=== PATIENT | male | born 1945 | race African-American/Black ===

== ENCOUNTER 2019-11-21 11:35 | Emergency (ER) | payer MEDICARE, OTHER ==
[~2019-11-21] VITALS: Ht 175.3 cm; Wt 97.5 kg
[~2019-11-21 11:35] MED LIST: AMLO10TA4; COLC0.6T2; LISI40TA4; LOP25; SIMV20TA2
[2019-11-21] MEDS ORDERED: ASPI-1497 PO (12:07)
[2019-11-21] MEDS ORDERED: TAMS-11 PO (12:07)
[2019-11-21] MEDS ORDERED: allopurinol (12:07)
[2019-11-21 13:07] LABS: BASOPHILS % 0.8 % (0.0-2.0); EOSINOPHILS % 1.6 % (0.0-5.0); HEMATOCRIT. 47.4 % (42.0-52.0); HEMOGLOBIN. 15.8 g/dL (14.0-18.0); LYMPHOCYTES % 26.3 % (20.0-50.0); MEAN CORPUSCULAR HEMOGLOBIN 31.9 pg (28.0-32.0); MEAN CORPUSCULAR VOLUME 95.4 fL (80.0-94.0); MEAN PLATELET VOLUME 8.7 fl (7.4-10.4); MONOCYTES % 8.3 % (2.0-8.0); PLATELET 184 x1000/uL (130-400); RED BLOOD CELL COUNT 4.97 mill/uL (4.7-6.1)
[2019-11-21 13:14] LABS: CHLORIDE 109 mEq/L (98-107)
[2019-11-21 13:15] LABS: PROTHROMBIN TIME 10.6 sec (9.6-11.0)
[2019-11-21] MEDS ORDERED: SODIUM CHLORIDE 0.9% 500 ML IV ONE (13:36)
[2019-11-21 17:31] LABS: CLARITY URINE CLEAR (CLEAR); COLOR URINE YELLOW (YELLOW); KETONES URINE NEGATIVE (NEGATIVE); LEUKOCYTE ESTERASE URINE NEGATIVE (NEGATIVE); NITRITE URINE NEGATIVE (NEGATIVE); OCCULT BLOOD URINE NEGATIVE (NEGATIVE); PH URINE 5.5 (4.5-8.0); PROTEIN URINE NEGATIVE (NEGATIVE); SPECIFIC GRAVITY URINE 1.019 (1.005-1.030)
[2019-11-21 21:03] VITALS: BP 149/77
== END 2019-11-21 21:03 | disposition short-term general hospital (02) ==
LOC: ER 11:35 → CANBEDREQ 21:14
DX: R42 Dizziness and giddiness (principal); E87.5 Hyperkalemia; I10 Essential (primary) hypertension; I25.10 Atherosclerotic heart disease of native coronary artery without angina pectoris; I25.2 Old myocardial infarction; E78.00 Pure hypercholesterolemia, unspecified; N40.0 Benign prostatic hyperplasia without lower urinary tract symptoms; Z79.82 Long term (current) use of aspirin; Z87.891 Personal history of nicotine dependence
CPT/HCPCS: 36415; 70450; 71045; 80053; 81003; 84484; 85025; 85610; 93005; 96360; 99285; J7030

== ENCOUNTER 2021-05-28 14:53 | Inpatient (IN) | payer MEDICARE, OTHER ==
[~2021-05-28] VITALS: Ht 177.8 cm; Wt 97.5 kg
[~2021-05-28 14:53] MED LIST changes: +ASPI-1497 PO; -COLC0.6T2; +LISI40TA13; -LISI40TA4; +TAMS-11 PO; +allopurinol
[2021-05-28 16:45] LABS: CHLORIDE 108 mEq/L (98-107)
[2021-05-28 16:49] LABS: BASOPHILS % 0.6 % (0.0-2.0); EOSINOPHILS % 0.8 % (0.0-5.0); HEMATOCRIT. 47.4 % (42.0-52.0); LYMPHOCYTES % 23.4 % (20.0-50.0); MEAN CORPUSCULAR HEMOGLOBIN 32.4 pg (28.0-32.0); MEAN CORPUSCULAR VOLUME 96.2 fL (80.0-94.0); MEAN PLATELET VOLUME 8.8 fl (7.4-10.4); MONOCYTES % 6.9 % (2.0-8.0); NEUTROPHILS % 68.3 % (40.0-76.0); PLATELET 175 x1000/uL (130-400); RED BLOOD CELL COUNT 4.93 mill/uL (4.7-6.1); RED CELL DISTRIBUTION WIDTH 14.8 % (11.6-14.6)
[2021-05-29] VITALS (7 sets, daily range): BP systolic 119–168; BP diastolic 61–82
[2021-05-29] MEDS ORDERED: DOCUSATE SODIUM 100MG CAPSULE PO PRN (07:15)
[2021-05-29] MEDS ORDERED: ONDANSETRON HCL 4MG/2ML INJ IV PRN (07:15)
[2021-05-29] MEDS ORDERED: ACETAMINOPHEN 325MG TABLET PO PRN (07:15)
[2021-05-29] MEDS: METOPROLOL TARTRATE 25MG TABLET PO SCH ×3 (09:00→21:24)
[2021-05-29] MEDS: ALLOPURINOL 100 MG TABLET PO SCH ×2 (10:45→16:37)
[2021-05-29] MEDS: ENOXAPARIN 40MG/0.4ML SYR SUBCUT SCH (10:45)
[2021-05-29] MEDS: ASPIRIN 81MG EC TABLET PO SCH (10:45)
[2021-05-29] MEDS: AMLODIPINE 10MG TABLET PO SCH (10:47)
[2021-05-29] MEDS: TAMSULOSIN HCL 0.4MG SR CAPSULE PO SCH (10:52)
[2021-05-29 12:07] LABS: BASOPHILS % 0.7 % (0.0-2.0); EOSINOPHILS % 0.8 % (0.0-5.0); HEMATOCRIT. 43.6 % (42.0-52.0); HEMOGLOBIN. 14.7 g/dL (14.0-18.0); LYMPHOCYTES % 18.9 % (20.0-50.0); MEAN CORPUSCULAR VOLUME 94.6 fL (80.0-94.0); MONOCYTES % 8.2 % (2.0-8.0); NEUTROPHILS % 71.4 % (40.0-76.0); PLATELET 183 x1000/uL (130-400); RED BLOOD CELL COUNT 4.61 mill/uL (4.7-6.1); RED CELL DISTRIBUTION WIDTH 14.6 % (11.6-14.6)
[2021-05-29 12:09] LABS: CHLORIDE 106 mEq/L (98-107)
[2021-05-29] MEDS ORDERED: ASPI-986 MT (15:25)
[2021-05-29] MEDS ORDERED: COLC0.6C3 PO (15:25)
[2021-05-29] MEDS ORDERED: LACT1CAP68 MT (15:25)
[2021-05-29] MEDS ORDERED: FLUT12AE7 INH (15:25)
[2021-05-29] MEDS ORDERED: ACET-2708 MT (15:25)
[2021-05-29] MEDS ORDERED: POTA20TA82 MT (15:25)
[2021-05-29] MEDS ORDERED: LISI-186 MT (15:25)
[2021-05-29] MEDS ORDERED: SIME40DR70 PO (15:25)
[2021-05-29] MEDS ORDERED: LEVO88TA7 PO (15:25)
[2021-05-29] MEDS ORDERED: FOLI-43 PO (15:25)
[2021-05-29] MEDS ORDERED: HYDR5TAB13 MT (15:25)
[2021-05-29] MEDS ORDERED: ALBU4TAB6 MT (15:25)
[2021-05-29] MEDS ORDERED: ATOR20TA65 MT (15:25)
[2021-05-29 16:54] LABS: T4 FREE 1.15 ng/dL (0.76-1.46)
[2021-05-29 18:43] LABS: CLARITY URINE CLEAR (CLEAR); COLOR URINE YELLOW (YELLOW); KETONES URINE NEGATIVE (NEGATIVE); LEUKOCYTE ESTERASE URINE NEGATIVE (NEGATIVE); NITRITE URINE NEGATIVE (NEGATIVE); OCCULT BLOOD URINE NEGATIVE (NEGATIVE); PROTEIN URINE NEGATIVE (NEGATIVE); SPECIFIC GRAVITY URINE 1.015 (1.005-1.030)
[2021-05-29 18:51] LABS: PHENCYCLIDINE URINE SCREEN NEGATIVE (NEGATIVE)
[2021-05-29 18:52] LABS: *AMPHETAMINES SCREEN URINE NEGATIVE (NEGATIVE); *BARBITURATES SCREEN URINE NEGATIVE (NEGATIVE); *BENZODIAZEPINES SCREEN URINE NEGATIVE (NEGATIVE); *COCAINE SCREEN URINE NEGATIVE (NEGATIVE); CANNABINOID URINE SCREEN NEGATIVE (NEGATIVE); METHADONE URINE SCREEN NEGATIVE (NEGATIVE); OPIATES URINE SCREEN NEGATIVE (NEGATIVE)
[2021-05-29] MEDS ORDERED: ZOLPIDEM TARTRATE 5MG TABLET PO PRN (21:00)
[2021-05-29] MEDS ORDERED: ATORVASTATIN CALCIUM 40MG TABLET PO SCH (21:00)
[2021-05-30] VITALS: BP 135/74
[2021-05-30 04:00] VITALS: BP 136/69
[2021-05-30 07:48] LABS: BASOPHILS % 0.8 % (0.0-2.0); EOSINOPHILS % 1.7 % (0.0-5.0); HEMATOCRIT. 43.6 % (42.0-52.0); HEMOGLOBIN. 14.6 g/dL (14.0-18.0); LYMPHOCYTES % 26.3 % (20.0-50.0); MEAN CORPUSCULAR HEMOGLOBIN 31.5 pg (28.0-32.0); MEAN CORPUSCULAR VOLUME 93.9 fL (80.0-94.0); MEAN PLATELET VOLUME 9.1 fl (7.4-10.4); MONOCYTES % 9.8 % (2.0-8.0); NEUTROPHILS % 61.4 % (40.0-76.0); PLATELET 189 x1000/uL (130-400); RED BLOOD CELL COUNT 4.64 mill/uL (4.7-6.1); RED CELL DISTRIBUTION WIDTH 14.4 % (11.6-14.6)
[2021-05-30 08:00] VITALS: BP_SYST 110; BP_SYST 120; BP_SYST 122; BP_DIAS 58; BP_DIAS 64; BP_DIAS 67
[2021-05-30 08:10] LABS: CHLORIDE 105 mEq/L (98-107)
[2021-05-30 08:18] LABS: LDL CHOLESTEROL 61 mg/dL (5-100)
[2021-05-30 08:21] LABS: HDL CHOLESTEROL 40 mg/dL (40-59)
[2021-05-30] MEDS: METOPROLOL TARTRATE 25MG TABLET PO SCH (09:00)
[2021-05-30] MEDS: TAMSULOSIN HCL 0.4MG SR CAPSULE PO SCH (09:13)
[2021-05-30] MEDS: ASPIRIN 81MG EC TABLET PO SCH (09:13)
[2021-05-30] MEDS: AMLODIPINE 10MG TABLET PO SCH (09:13)
[2021-05-30] MEDS: ENOXAPARIN 40MG/0.4ML SYR SUBCUT SCH (09:14)
[2021-05-30] MEDS: ALLOPURINOL 100 MG TABLET PO SCH ×2 (09:30→17:00)
[2021-05-30 12:00] VITALS: BP_SYST 108; BP_SYST 132; BP_SYST 140; BP_DIAS 63; BP_DIAS 68; BP_DIAS 71
[2021-05-30 16:00] VITALS: BP_SYST 102; BP_SYST 126; BP_SYST 132; BP_DIAS 58; BP_DIAS 62; BP_DIAS 64
[2021-05-31] MEDS ORDERED: ENOXAPARIN 30MG/0.3ML SYR SUBCUT SCH (09:00)
== END 2021-05-30 17:00 | disposition home or self-care (01) | DRG 74 ==
LOC: ER 14:53 → ENRESERV 20:32 → CANRESERV 20:32 → MICUSO 22:01 → EDBEDREQ 22:06 → EDBEDREQTM 22:06 → 8WST 05-29 08:23
PROVIDERS: ADMIT Internal Medicine Pulmonary Disease; ATTEND Internal Medicine Pulmonary Disease
DX: G90.8 Other disorders of autonomic nervous system (principal); E66.9 Obesity, unspecified; E78.5 Hyperlipidemia, unspecified; E87.8 Other disorders of electrolyte and fluid balance, not elsewhere classified; I10 Essential (primary) hypertension; I25.10 Atherosclerotic heart disease of native coronary artery without angina pectoris; I95.9 Hypotension, unspecified; E78.00 Pure hypercholesterolemia, unspecified; I25.2 Old myocardial infarction; Z87.891 Personal history of nicotine dependence; Z79.899 Other long term (current) drug therapy; Z79.82 Long term (current) use of aspirin; Z71.3 Dietary counseling and surveillance; Z68.30 Body mass index [BMI] 30.0-30.9, adult
CPT/HCPCS: 36415; 71045; 80048; 80053; 80061; 80305; 81003; 83036; 83735; 83880; 84439; 84443; 84481; 84484; 85025; 93005; 93306; 93880; 97162; 99285; J1650

== ENCOUNTER 2023-03-15 11:43 | Emergency (ER) | payer MEDICARE, OTHER ==
[~2023-03-15] VITALS: Ht 167.6 cm; Wt 89.0 kg
[~2023-03-15 11:43] MED LIST changes: -LOP25; +SIMV-343; -SIMV20TA2
[2023-03-15 11:46] VITALS: O2SAT 100
[2023-03-15 13:04] LABS: BASOPHILS % 0.6 % (0.0-2.0); EOSINOPHILS % 1.8 % (0.0-5.0); HEMATOCRIT. 43.7 % (42.0-52.0); HEMOGLOBIN. 14.9 g/dL (14.0-18.0); LYMPHOCYTES % 24.2 % (20.0-50.0); MEAN CORPUSCULAR HEMOGLOBIN 32.3 pg (28.0-32.0); MEAN PLATELET VOLUME 9.3 fl (7.4-10.4); MONOCYTES % 9.3 % (2.0-8.0); NEUTROPHILS % 64.1 % (40.0-76.0); PLATELET 178 x1000/uL (130-400)
[2023-03-15 13:05] VITALS: TEMP 98.5
[2023-03-15 13:10] LABS: CHLORIDE 111 mEq/L (98-107)
[2023-03-15 15:59] VITALS: BP 143/75; PULSE 61; RESP 16
== END 2023-03-15 16:45 | disposition home or self-care (01) ==
LOC: ER 11:43
DX: R42 Dizziness and giddiness (principal); I25.10 Atherosclerotic heart disease of native coronary artery without angina pectoris; E78.00 Pure hypercholesterolemia, unspecified; I10 Essential (primary) hypertension; I25.2 Old myocardial infarction
CPT/HCPCS: 36415; 80053; 84484; 85025; 93005; 99284